=== PATIENT | female | born 1975 | race Caucasian/White ===

== ENCOUNTER 2017-11-14 20:43 | Emergency (ER) | payer SELFPAY ==
[2017-11-14] MEDS ORDERED: Loperamide 2 MG Cap PO STA (21:04)
--- NOTE | 2017-11-14 21:04 | EDM.PDOC ---
ED HPI GENERAL MEDICAL PROBLEM - General Chief Complaint: Gastrointestinal Problem Stated Complaint: FLU SYMTOMS Time Seen by Provider: 11/14/17 20:53 Source of Information: Reports: Patient History Limitations: Reports: No Limitations - History of Present Illness INITIAL COMMENTS - FREE TEXT/NARRATIVE: 42 y.o.w.f works for a [employer] and noticed watery diarrhea since this am. Did not travel. denies food poisong, nobody else got sick, no f/c or any other acute medical issues. BP 127/74 pulse 93 temp 36.6 pulse ox 99% on RA RR 20. Onset: Today Onset Date: 11/14/17 Onset Time: 07:00 Duration: Intermittent Location: Reports: Chest Quality: Reports: Ache Severity: Mild Improves with: Reports: Rest Worsens with: Reports: Movement Context: Reports: Other (pod cough) Associated Symptoms: Reports: No Other Symptoms HEADACHE Pain Score (Numeric/FACES): 5 - Related Data Allergies Allergy/AdvReac Type Severity Reaction Status Date / Time Sulfa (Sulfonamide Allergy Swollen Verified 11/14/17 20:50 Antibiotics) Tongue Home Meds: Home Meds metroNIDAZOLE [Flagyl] 500 mg PO Q8H #30 tab 11/14/17 [Rx] ED ROS GENERAL - Review of Systems Review Of Systems: See Below Constitutional: Reports: No Symptoms HEENT: Reports: No Symptoms Respiratory: Reports: Pleuritic Chest Pain, Cough, Sputum Cardiovascular: Reports: No Symptoms Endocrine: Reports: No Symptoms GI/Abdominal: Reports: Diarrhea : Reports: No Symptoms Musculoskeletal: Reports: No Symptoms Skin: Reports: No Symptoms Neurological: Reports: No Symptoms Psychiatric: Reports: No Symptoms Hematologic/Lymphatic: Reports: No Symptoms Immunologic: Reports: No Symptoms ED EXAM, GI/ABD - Physical Exam Exam: See Below Exam Limited By: No Limitations General Appearance: Alert, WD/WN, No Apparent Distress Eyes: Bilateral: Normal Appearance Ears: Normal External Exam Nose: Normal Inspection, Normal Mucosa Throat/Mouth: Normal Inspection Head: Atraumatic, Normocephalic Neck: Normal Inspection, Supple Respiratory/Chest: No Respiratory Distress, Rhonchi Cardiovascular: Normal Peripheral Pulses, Regular Rate, Rhythm, No JVD, No Murmur, No Rub GI/Abdominal Exam: Normal Bowel Sounds, Soft, Non-Tender, No Organomegaly (Female) Exam: Deferred Rectal (Female) Exam: Deferred Back Exam: Normal Inspection, Full Range of Motion Extremities: Normal Inspection, Normal Range of Motion Neurological: Alert, Oriented Psychiatric: Normal Affect, Normal Mood Skin Exam: Warm, Dry, Intact, Normal Color, No Rash Lymphatic: No Adenopathy Course - Vital Signs Text/Narrative:: 42 y.o.w.f works for a [employer] and noticed watery diarrhea since this am. Did not travel. denies food poisong, nobody else got sick, no f/c or any other acute medical issues. BP 127/74 pulse 93 temp 36.6 pulse ox 99% on RA RR 20. PE: WNWD WF wit diarrhea Labs: Stool cx is pending Impression: Diarrhea presumed infectious Tx: Imodium, Flagyl Reexam: improved Plan: D/C with instructions Last Recorded V/S: Last Vital Signs Temp 36.6 C 11/14/17 20:53 Pulse 93 11/14/17 20:53 Resp 16 11/14/17 20:53 BP 127/74 11/14/17 20:53 Pulse Ox 99 11/14/17 20:53 - Orders/Labs/Meds Orders: Active Orders 24 hr Category Date Time Status CDIFF TOXIN A+B GROUP [OP] Stat Lab 11/14/17 20:55 Received CULTURE-STOOL [MREF] Stat Lab 11/14/17 20:55 Received LACTOFERRIN, FECAL BY RAMANDEEP [REF] Stat Lab 11/14/17 20:55 Received Meds: Medications Discontinued Medications Generic Name Dose Route Start Last Admin Trade Name Hill PRN Reason Stop Dose Admin Loperamide HCl 4 mg 11/14/17 21:04 11/14/17 21:09 Imodium PO 11/14/17 21:05 4 mg ONETIME STA Administration Metronidazole 500 mg 11/14/17 21:05 11/14/17 21:09 Flagyl PO 11/14/17 21:06 500 mg ONETIME STA Administration Departure - Departure Time of Disposition: 21:12 Disposition: Home, Self-Care 01 Condition: Good (diarr) Clinical Impression: Diarrhea Qualifiers: Diarrhea type: presumed infectious Qualified Code(s): A09 - Infectious gastroenteritis and colitis, unspecified - Discharge Information Prescriptions: metroNIDAZOLE [Flagyl] 500 mg PO Q8H #30 tab Instructions: Loperamide tablets or capsules, Viral Gastroenteritis, Adult, [id number], Diarrhea, Adult, [id number], Metronidazole tablets or capsules Referrals: PCP,None [Primary Care Provider] - Forms: ED Department Discharge, ED Return to Work/School Form Additional Instructions: Please take imodium 1 tablet after each loose bowel movement but not more then 8 tablets in 24 hours. Please take Flagyl as recommended, please f/u, come back if your symptoms get worse acutely. - My Orders Last 24 Hours: My Active Orders 11/14/17 20:55 CDIFF TOXIN A+B GROUP [OP] Stat CULTURE-STOOL [MREF] Stat LACTOFERRIN, FECAL BY RAMANDEEP [REF] Stat - Assessment/Plan Last 24 Hours: My Active Orders 11/14/17 20:55 CDIFF TOXIN A+B GROUP [OP] Stat CULTURE-STOOL [MREF] Stat LACTOFERRIN, FECAL BY RAMANDEEP [REF] Stat
[2017-11-14] MEDS ORDERED: metroNIDAZOLE 500 MG Tab PO STA (21:05)
== END 2017-11-14 21:20 | disposition home or self-care (01) ==
LOC: FB.ED 20:43
DX: R19.7 Diarrhea, unspecified (principal); Z88.2 Allergy status to sulfonamides
CPT/HCPCS: 83630; 87324; 99284; A9270; 87015; 87045; 87046; 87899; 99283

== ENCOUNTER 2018-04-26 17:47 | Emergency (ER) | payer MEDICAID ==
[2018-04-26] MEDS ORDERED: traMADol 50 MG Tab PO ONE (20:00)
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
== END 2018-04-26 20:10 | disposition home or self-care (01) ==
LOC: FB.ED 17:47
DX: S06.0X0A Concussion without loss of consciousness, initial encounter (principal); S09.93XA Unspecified injury of face, initial encounter; Z88.2 Allergy status to sulfonamides; Y04.8XXA Assault by other bodily force, initial encounter
CPT/HCPCS: 70486; 72125; 99283; A9270

== ENCOUNTER 2020-07-18 06:41 | Emergency (ER) | payer MEDICAID, OTHER ==
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
== END 2020-07-18 08:20 | disposition home or self-care (01) ==
LOC: FB.ED 06:41
DX: S30.0XXA Contusion of lower back and pelvis, initial encounter (principal); S20.219A Contusion of unspecified front wall of thorax, initial encounter; Z88.2 Allergy status to sulfonamides; Y04.8XXA Assault by other bodily force, initial encounter
CPT/HCPCS: 71045; 72100; 99283; 99284-25

== ENCOUNTER 2020-10-25 21:01 | Emergency (ER) | payer OTHER ==
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
== END 2020-10-25 22:48 | disposition home or self-care (01) ==
LOC: FB.ED 21:01
DX: S09.90XA Unspecified injury of head, initial encounter (principal); S10.93XA Contusion of unspecified part of neck, initial encounter; Z88.2 Allergy status to sulfonamides; Z98.51 Tubal ligation status; W22.01XA Walked into wall, initial encounter
CPT/HCPCS: 70450; 72125; 99284-25

== ENCOUNTER 2021-11-01 07:41 | Emergency (ER) | payer OTHER ==
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
[2021-11-01] MEDS ORDERED: Acetaminophen 500 MG Tab PO STA (08:47)
[2021-11-01] MEDS ORDERED: Ibuprofen 800 MG Tab PO STA (08:47)
== END 2021-11-01 09:00 | disposition home or self-care (01) ==
LOC: FB.ED 07:41
DX: S20.212A Contusion of left front wall of thorax, initial encounter (principal); Z88.2 Allergy status to sulfonamides; W22.09XA Striking against other stationary object, initial encounter
CPT/HCPCS: 71101; 99283; A9270

== ENCOUNTER 2023-04-11 22:32 | Emergency (ER) | payer OTHER | END 2023-04-11 23:20 | disposition home or self-care (01) | LOC: FB.ED 22:32 | DX: S63.502A Unspecified sprain of left wrist, initial encounter (principal); Z88.2 Allergy status to sulfonamides; W01.198A Fall on same level from slipping, tripping and stumbling with subsequent striking against other object, initial encounter | CPT/HCPCS: 29125; 73110-LT; 99283 ==

== ENCOUNTER 2024-09-12 13:05 | Emergency (ER) | payer OTHER ==
[2024-09-12] MEDS ORDERED: Lidocaine 2% 20 ML MDV INFILT ONE (13:06)
[2024-09-12] MEDS ORDERED: Cephalexin 500 MG Cap PO ONE (13:06)
[2024-09-12] MEDS: Diphtheria,Pertussis(Acell),Tetanus Vaccine 0.5 ML Syringe IM ONE (14:12)
== END 2024-09-12 14:28 | disposition home or self-care (01) ==
LOC: FB.ED 13:05
DX: S51.811A Laceration without foreign body of right forearm, initial encounter (principal); Z23 Encounter for immunization; Z88.2 Allergy status to sulfonamides; Z79.899 Other long term (current) drug therapy; W26.8XXA Contact with other sharp object(s), not elsewhere classified, initial encounter
CPT/HCPCS: 12005; 90471; 90715; 99282-25; 99283; A9270-GY